=== PATIENT | male | born 1990 | race Caucasian/White ===

== ENCOUNTER 2023-07-06 07:50 | Emergency (ER) | payer MEDICAID, OTHER ==
[~2023-07-06] VITALS: Ht 167.6 cm; Wt 152.6 kg
[2023-07-06 07:55] VITALS: BP 149/100; PULSE 94; TEMP 98.2; O2SAT 97
[2023-07-06] MEDS ORDERED: METH4TAB81 PO (09:38)
[2023-07-06] MEDS ORDERED: ALBU8HFA INH (09:38)
[2023-07-06 09:55] VITALS: RESP 17
== END 2023-07-06 10:15 | disposition home or self-care (01) ==
LOC: ER 07:50
DX: R05.9 Cough, unspecified (principal); J45.909 Unspecified asthma, uncomplicated; F12.90 Cannabis use, unspecified, uncomplicated; Z79.899 Other long term (current) drug therapy
CPT/HCPCS: 71045; 99283

== ENCOUNTER 2023-09-29 15:05 | Emergency (ER) | payer MEDICAID ==
[~2023-09-29] VITALS: Ht 167.6 cm; Wt 148.0 kg
[~2023-09-29 15:05] MED LIST: METH4TAB81 PO
[2023-09-29 15:50] VITALS: BP 155/116; PULSE 60; RESP 20; TEMP 96.6; O2SAT 96
[2023-09-29] MEDS ORDERED: ketorolac trometh inj. 60 MG/2 ML VIAL IM ONE (16:50)
[2023-09-29] MEDS ORDERED: ketorolac tromethamine 15mg/ml inj. IM ONE (16:55)
== END 2023-09-29 19:51 | disposition left against medical advice (07) ==
LOC: ER 15:05
DX: R10.9 Unspecified abdominal pain (principal); Z53.21 Procedure and treatment not carried out due to patient leaving prior to being seen by health care provider